=== PATIENT | female | born 1990 | race Caucasian/White ===

== ENCOUNTER → 2021-05-12 | Outpatient (POV) | payer BC ==
[~2021-05-12] VITALS: Ht 170.2 cm; Wt 59.1 kg
[2021-05-12 10:19] VITALS: BP 102/60
--- NOTE | 2021-05-13 14:00 | IRCOV ---
[facility] IR Consult Office Visit IR Consult Office Visit DATE: May 12, 2021 REASON FOR CONSULTATION/CHIEF COMPLAINT: Pelvic congestion. Vaginal varix. HISTORY OF PRESENT ILLNESS: 31-year-old female status post 3 healthy pregnancies carried to term with vaginal delivery, complains of increasing pelvic pain and bulk like symptoms associated with her periods. Patient states that prior to her pregnancies, she never had pain with periods. But since her last where she delivered 10 months ago, she's had increasing pelvic pain and bulk like symptoms. These are worse when she is standing for a long period of time. She describes severe dyspareunia after intercourse. Her pain is associated with a bulging left vaginal varix and a left lower extremity varicosity that runs from her groin to her ankle. She denies pain with defecation. Patient reports her periods have always been irregular, related to her PCOS and this is unchanged. She denies prior history of fibroids, adenomyosis or endometriosis. She does suffer with PCOS. She denies prior left lower extremity DVT. She denies left lo wer extremity swelling. ALLERGIES: Please see below. HOME MEDICATIONS: Please see below. PAST MEDICAL HISTORY: PCOS Left lower extremity varicose veins ITP mild. Platelets run at 115. No ongoing therapies. PAST SURGICAL HISTORY: Episiotomy FAMILY HISTORY: Noncontributory. SOCIAL HISTORY: Nonsmoker. Denies alcohol or drugs. REVIEW OF SYSTEMS: Otherwise negative. PHYSICAL EXAMINATION: VITAL SIGNS: Please see below. GENERAL APPEARANCE: Appears well. Comfortable at rest. HEENT: No scleral icterus. RESPIRATORY: Normal breathing at rest. CARDIOVASCULAR: Normal rate. ABDOMEN: Non-distended. Soft nontender. No varicosities over the mons pubis. Varicosity along the left labia. EXTREMITIES: Left lower extremity: Normal color and temperature. No edema. Large varicosity arising from the inner left groin continues to the ankle. No hemosiderin deposition. No Lipodermatosclerosis. No ulcerations. Calf soft nontender. Right lower extremity: Normal color and temperature. No edema. No varicose veins. No hemosiderin deposition. No Lipodermatosclerosis. No ulcerations. Calf soft nontender. NEUROLOGICAL: Alert and oriented. PSYCHIATRIC: Appropriate to circumstance. LABORATORY DATA: No recent labs in our system. Imaging: No imaging in our system. ASSESSMENT/PLAN: 31-year-old female status post 3 prior pregnancies, with ongoing and worsening pelvic bulk like symptoms associated with left lower extremity varicosities. 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 This would be best diagnosed with a venogram. We discussed the risks and benefits of the procedure and patient is willing to proceed. We have scheduled the patient for pelvic venogram to evaluate central venous drainage and gonadal venogram to evaluate for reflux. We will also request her prior outside ultrasound imaging from [facility] to evaluate for fibroids and/or adenomyosis. I spent 30 minutes in consultation with the patient. Thank you for this referral. Cc Dr. Chew VS, I&O, 24H, Fishbone Vital Signs/I&O Vital Signs Date Time Temp Pulse Resp B/P (MAP) Pulse Ox O2 Delivery O2 Flow Rate FiO2 05/12/21 10:19 97.6 64 16 102/60 (74) 100 Room Air ANDRES AMADOR MD May 13, 2021 14:00
== END ==
LOC: M IRPOV 09:51
PROVIDERS: ATTEND Radiology Diagnostic Radiology
DX: R10.2 Pelvic and perineal pain (principal); N94.10 Unspecified dyspareunia; I86.3 Vulval varices; E28.2 Polycystic ovarian syndrome; I83.92 Asymptomatic varicose veins of left lower extremity; D69.6 Thrombocytopenia, unspecified